=== PATIENT | male | born 1940 | race Caucasian/White ===

== ENCOUNTER → 2016-09-05 | Outpatient (CLI) | payer MEDICARE | END | disposition home or self-care (01) | LOC: PCVCIMAG 13:43 | PROVIDERS: ATTEND Internal Medicine Cardiovascular Disease | DX: I70.213 Atherosclerosis of native arteries of extremities with intermittent claudication, bilateral legs (principal); Z95.820 Peripheral vascular angioplasty status with implants and grafts | CPT/HCPCS: 93925 ==

== ENCOUNTER → 2017-02-07 | Outpatient (CLI) | payer MEDICARE ==
--- NOTE | 2017-02-07 12:34 | PCVCIMAG ---
APPROVED REPORT Patient Location: Out-Patient Indications Bruit Stenosis Surgery/Intervention Carotid Stent: right Doppler Spectral Velocity Analysis PSV / EDVPSV / EDV ICA/CCA ICA/CCA Findings The right carotid bulb has mild plaque. The right proximal internal carotid artery shows no significant stenosis. Widely patent common and internal carotid stent. The right common carotid artery shows no significant stenosis. The right external carotid artery shows <50% stenosis. The left carotid bulb has moderate heterogeneous plaque. The left proximal internal carotid artery shows 50-65% stenosis. The left common carotid artery shows no significant stenosis. The left external carotid artery shows no significant stenosis. Conclusion 1. Widely patent right internal and common carotid artery stent 2. Left internal carotid artery stenosis (50-65%) 3. Antegrade vertebral flow
--- NOTE | 2017-02-07 13:29 | PCVCIMAG ---
EXAM: AORTOILIAC DUPLEX INDICATION: Peripheral arterial disease FINDINGS: AORTA: Suprarenal aorta measures maximum diameter of 2.8 cm. There is a fusiform infrarenal aortic aneurysm. The infrarenal aorta measures maximum diameter of 3.1 x 3.5 cm. No aortic stenosis. RIGHT COMMON ILIAC ARTERY: Maximum diameter is 1.6 cm. No significant stenosis. RIGHT EXTERNAL ILIAC ARTERY: No significant stenosis. LEFT COMMON ILIAC ARTERY: Maximum diameter is 1.6 cm. No significant stenosis. LEFT EXTERNAL ILIAC ARTERY: No significant stenosis. IMPRESSION: 3.5 cm infrarenal abdominal aortic aneurysm is unchanged. No significant aortoiliac stenosis. Previous left iliac stent maintaining good patency. LOC:[id number]
--- NOTE | 2017-02-07 13:44 | PCVCIMAG ---
EXAM: BILATERAL LOWER EXTREMITY ARTERIAL DUPLEX INDICATION: Peripheral Arterial Disease. Leg pain. FINDINGS: Right Leg: Satisfactory arterial waveforms in the common femoral and profunda femoral artery and throughout the superficial femoral artery and popliteal artery without significant stenosis. Previous stent mid/distal superficial femoral artery and in the popliteal artery showing good patency. 80% stenosis tibioperoneal trunk. The posterior tibial arteries occluded. The peroneal artery is patent. Mild stenosis proximal anterior tibial artery. Left Leg: Satisfactory arterial waveforms in the common femoral artery. 70% stenosis proximal profunda femoral artery. Previous stent mid/distal superficial femoral artery maintaining good patency. 80% stenosis mid/distal [place] left popliteal artery and left tibioperoneal trunk has worsened since September 2016 study. Unchanged occlusion left posterior tibial artery. Moderate stenosis proximal peroneal artery. Anterior tibial artery is patent. IMPRESSION: Previous right superficial femoral artery stent and right popliteal artery stent maintaining satisfactory patency. 80% stenosis right tibioperoneal trunk. Previous left superficial femoral artery stent is patent. 80% stenosis mid/distal left popliteal artery and left tibioperoneal trunk has worsened since September 2016 study. Unchanged bilateral posterior tibial artery occlusion. LOC:[id number]
== END | disposition home or self-care (01) ==
LOC: PCVCIMAG 08:57
PROVIDERS: ATTEND Internal Medicine Cardiovascular Disease
DX: I65.23 Occlusion and stenosis of bilateral carotid arteries (principal); I71.4 Abdominal aortic aneurysm, without rupture; I70.293 Other atherosclerosis of native arteries of extremities, bilateral legs; I77.1 Stricture of artery; I25.10 Atherosclerotic heart disease of native coronary artery without angina pectoris; E78.00 Pure hypercholesterolemia, unspecified; I12.9 Hypertensive chronic kidney disease with stage 1 through stage 4 chronic kidney disease, or unspecified chronic kidney disease; I44.0 Atrioventricular block, first degree; N18.9 Chronic kidney disease, unspecified; I70.1 Atherosclerosis of renal artery; Z85.46 Personal history of malignant neoplasm of prostate; Z79.01 Long term (current) use of anticoagulants; Z79.899 Other long term (current) drug therapy; Z87.891 Personal history of nicotine dependence; Z88.8 Allergy status to other drugs, medicaments and biological substances
CPT/HCPCS: 80061; 93005; 93880; 93925; 93978; G0463

== ENCOUNTER → 2017-10-12 | Outpatient (CLI) | payer MEDICARE | END | disposition home or self-care (01) | LOC: PCVCIMAG 13:23 | DX: I65.23 Occlusion and stenosis of bilateral carotid arteries (principal); I77.9 Disorder of arteries and arterioles, unspecified; I25.10 Atherosclerotic heart disease of native coronary artery without angina pectoris; I73.9 Peripheral vascular disease, unspecified; I12.9 Hypertensive chronic kidney disease with stage 1 through stage 4 chronic kidney disease, or unspecified chronic kidney disease; N18.4 Chronic kidney disease, stage 4 (severe); E78.00 Pure hypercholesterolemia, unspecified; E78.1 Pure hyperglyceridemia; R09.89 Other specified symptoms and signs involving the circulatory and respiratory systems; M54.41 Lumbago with sciatica, right side; M54.42 Lumbago with sciatica, left side; G89.29 Other chronic pain; Z87.891 Personal history of nicotine dependence; Z79.899 Other long term (current) drug therapy; Z79.01 Long term (current) use of anticoagulants; Z88.8 Allergy status to other drugs, medicaments and biological substances | CPT/HCPCS: 80061; 93005; 93880; G0463 ==

== ENCOUNTER → 2018-09-04 | Outpatient (CLI) | payer MEDICARE ==
--- NOTE | 2018-09-04 10:19 | PCVCIMAG ---
EXAM: BILATERAL CAROTID DUPLEX INDICATION: Carotid Occlusive Disease. FINDINGS: Doppler Measurements (centimeters per second): RIGHT: Peak CCA-77, Peak ECA-102, Diastolic ICA-23, Peak ICA-90, ICA/CCA Ratio-1.2. LEFT: Peak CCA-76, Peak ECA-334, Diastolic ICA-28, Peak ICA-134, ICA/CCA Ratio-1.8. RIGHT CAROTID: Good color flow throughout a prior stent in the upper common carotid and extending into the proximal internal carotid artery. The proximal internal carotid artery shows no significant stenosis. The common carotid artery shows no significant stenosis. The external carotid artery shows no significant stenosis. LEFT CAROTID: The carotid bulb has moderate plaque. The proximal internal carotid artery shows 50% stenosis. The common carotid artery shows no significant stenosis. The external carotid artery shows 80% stenosis. Antegrade flow in both vertebral arteries. IMPRESSION: Prior right carotid stent shows good patency. 50% stenosis of the left internal carotid artery with moderate plaque. No change since October 2017 study. LOC:[id number]
--- NOTE | 2018-09-04 11:37 | PCVCIMAG ---
EXAM: BILATERAL LOWER EXTREMITY ARTERIAL DUPLEX INDICATION: Peripheral Arterial Disease. Leg pain. FINDINGS: Right Leg: Common femoral and profunda femoral arteries are patent. Increased systolic velocity 288 cm/s from 143 cm/s mid/distal superficial femoral artery within prior stent consistent with 60% restenosis. Popliteal artery is patent including previous popliteal stent. 80% stenosis tibioperoneal trunk with peak systolic velocity 382 cm/s. Occlusion of the posterior tibial artery. The anterior tibial and peroneal arteries are patent. Left Leg: Common femoral and profunda femoral arteries are patent. Increased systolic velocity 43 cm/s distal superficial femoral artery from 49 cm/s consistent with 90% restenosis. Increased systolic velocity 317 cm/s mid popliteal artery consistent with 80% stenosis. Occlusion of the posterior tibial artery. Anterior tibial and peroneal arteries are patent. IMPRESSION: 60% restenosis mid/distal superficial femoral artery within prior stent has developed since February 2017. Previous right popliteal artery stent is patent. 80% stenosis right tibioperoneal trunk is unchanged. Occlusion of the posterior tibial artery. 90% restenosis distal left superficial femoral artery within prior stent has developed since February 2017. 80% stenosis mid cheesh-na left popliteal artery. Unchanged occlusion left posterior tibial artery. LOC:[id number]
== END | disposition home or self-care (01) ==
LOC: PCVCIMAG 09:21
PROVIDERS: ATTEND Internal Medicine Cardiovascular Disease
DX: I65.22 Occlusion and stenosis of left carotid artery (principal); I25.10 Atherosclerotic heart disease of native coronary artery without angina pectoris; I73.9 Peripheral vascular disease, unspecified; R07.9 Chest pain, unspecified; R06.02 Shortness of breath; E78.00 Pure hypercholesterolemia, unspecified; R00.1 Bradycardia, unspecified; Z87.891 Personal history of nicotine dependence
CPT/HCPCS: 36415; 80061; 93005; 93880; 93925; G0463

== ENCOUNTER → 2018-10-25 | Outpatient (CLI) | payer MEDICARE ==
[~2018-10-25] MED LIST: REGADENOSON 0.4 MG/5 ML DISP.SYRIN. IV ONE
--- NOTE | 2018-10-26 13:12 | PCVCIMAG ---
APPROVED REPORT Imaging Protocol: Rest Tc-99m/Stress Tc-99m 1 day Study performed: 10/25/2018 13:40:21 Indication: CAD, Fatigue, Orthostatic Hypotension Patient Location: Out-Patient Stress Nurse: Michelle Felix RN, Erlinda Leahy RN AR Tech:Jacklyn SARA SalazarMT Ht: 6 ft 0 in Wt: 171 lbs BSA: 1.99 m2 HR: 47 bpm BP: 173/75 mmHg BMI: 23.1 Rhythm: Marked Sinus Bradycardia, 1st degree AV block, Intraventricular conduction delay Medical History Medical History: HTN, Hyperlipidemia, CVD, PVD, CVD, Former Smoker Medications: Narco, Pravastatin, Warfarin Allergies: EES, Neomycin, Latex Cardiac Risk Factors: Age Previous Cardiac Procedures: 2014 Cath - Severe disease to LAD and RCA occluded Pretest Chest Pain Characteristics: No chest pain Exercise History: Sedentary Resting Data Rest SPECT myocardial perfusion imaging was performed in supine position 45 minutes following the intravenous injection of 9.7 mCi of Tc-99m Sestamibi. Time of rest injection: 1315 Date: 10/25/2018 Administration Route: IV Administration Site: Right AC Pharmacologic Stress Pharmacologic stress test was performed by injecting Regadenoson 0.4 mg IV push over 10-15 seconds immediately followed by the intravenous injection of mCi of Tc-99m Sestamibi. Time of stress injection: 1415 Date: 10/25/2018 Administration Route: IV Administration Site: Right AC Gated Stress SPECT was performed 45 minutes after stress injection. The images were gated to evaluate regional wall motion and calculate left ventricular ejection fraction. Stress Test Details Stress Test: Pharmacologic stress testing performed using 0.4 mg of regadenoson per 5 mL given IV over 10 seconds. Reason for pharmacologic stress test: physical limitation, weakness and unsteady gait.. HRMax Heart Rate (APMHR): 141 bpm Resting HR: 47 bpmTarget HR (85% APMHR): 119 bpm Max HR Achieved: 57 bpm % of APMHR: 40 Recovery HR: 52 bpm BP Resting BP: 173/75 mmHg Max BP: 169/79 mmHg Recovery BP: 161/67 mmHg ECG Resting ECG: Marked Sinus Bradycardia, 1st degree AV block, Intraventricular conduction delay Stress ECG: Marked Sinus Bradycardia, 1st degree AV block, Intraventricular conduction delay Arrhythmia: PVC's Recovery ECG: Marked Sinus Bradycardia, 1st degree AV block, Intraventricular conduction delay Clinical Reason for Termination: Completed protocol Stress Symptoms: Dyspnea Symptoms resolved during recovery. Stress ECG Conclusion ECG: Non-ischemic Study Quality Study: Good Study Data Post stress, the left ventricular ejection was 71%.. SSS: 9 SRS: 4 SDS: 7 TID = 1.20. Perfusion Medium sized area of moderate reversible ischemia involving the inferior left ventricle consistent with known chronic right coronary artery occlusion. Nuclear Conclusion Medium sized area of moderate reversible ischemia involving the inferior left ventricle consistent with known chronic right coronary artery occlusion. Post stress, the left ventricular ejection was 71%. No change since prior study dated January 2016. Interpreted by: Jay Whiting MD Electronically Approved: 10/26/2018 11:35:14 <Conclusion> ECG: Non-ischemic
== END | disposition home or self-care (01) ==
LOC: PCVCIMAG 12:57
PROVIDERS: ATTEND Internal Medicine Cardiovascular Disease
DX: I25.10 Atherosclerotic heart disease of native coronary artery without angina pectoris (principal); R53.83 Other fatigue; I95.1 Orthostatic hypotension; Z87.891 Personal history of nicotine dependence
CPT/HCPCS: 78452; 93017; A9500; J2785

== ENCOUNTER → 2019-02-14 | Outpatient (CLI) | payer MEDICARE ==
--- NOTE | 2019-02-14 10:49 | PCVCIMAG ---
EXAM: LEFT LOWER EXTREMITY ARTERIAL DUPLEX INDICATION: Peripheral Arterial Disease. Leg pain. FINDINGS: Left Leg: Common femoral and profunda femoral arteries are patent. Superficial femoral artery including previous stent maintaining good patency. Mild stenosis upper popliteal artery within prior stent. Mild stenosis distal popliteal artery. These vessels were shown to be small in size on recent angiogram. The posterior tibial arteries occluded. The anterior tibial and peroneal arteries show adequate patency. IMPRESSION: Previous left superficial femoral artery stent maintaining satisfactory patency. Mild restenosis upper popliteal artery stent and prior site of intervention distal popliteal artery. Unchanged occlusion left posterior tibial artery. LOC:[id number]
== END | disposition home or self-care (01) ==
LOC: PCVCIMAG 08:43
PROVIDERS: ATTEND Internal Medicine Cardiovascular Disease
DX: I73.9 Peripheral vascular disease, unspecified (principal); I71.4 Abdominal aortic aneurysm, without rupture; I25.10 Atherosclerotic heart disease of native coronary artery without angina pectoris; I10 Essential (primary) hypertension; E78.00 Pure hypercholesterolemia, unspecified; Z88.8 Allergy status to other drugs, medicaments and biological substances; Z87.891 Personal history of nicotine dependence; Z72.89 Other problems related to lifestyle; Z79.899 Other long term (current) drug therapy; Z91.040 Latex allergy status
CPT/HCPCS: 36415; 80061; 93005; 93926; G0463